=== PATIENT | male | born 1945 | race Caucasian/White ===

== ENCOUNTER 2021-07-06 10:23 | Emergency (ER) | payer OTHER, MEDICARE ==
[~2021-07-06] VITALS: Ht 172.7 cm; Wt 71.7 kg
[2021-07-06 10:45] VITALS: BP_SYST 179
[2021-07-06] MEDS ORDERED: DOXY100C PO (11:17)
[2021-07-06 11:27] VITALS: BP_SYST 175
== END 2021-07-06 11:27 | disposition home or self-care (01) ==
LOC: SED 10:23
DX: S30.860A Insect bite (nonvenomous) of lower back and pelvis, initial encounter (principal); W57.XXXA Bitten or stung by nonvenomous insect and other nonvenomous arthropods, initial encounter; Y93.89 Activity, other specified; Y92.89 Other specified places as the place of occurrence of the external cause; Y99.8 Other external cause status
CPT/HCPCS: 99283